=== PATIENT | female | born 1990 | race Asian ===

== ENCOUNTER → 2018-11-27 | Outpatient (CLI) | payer MEDICAID | END | disposition home or self-care (01) | LOC: RAH 13:58 | PROVIDERS: ATTEND Specialist | DX: O34.81 Maternal care for other abnormalities of pelvic organs, first trimester (principal); N83.291 Other ovarian cyst, right side; O76 Abnormality in fetal heart rate and rhythm complicating labor and delivery; Z3A.13 13 weeks gestation of pregnancy | CPT/HCPCS: 76801 ==